=== PATIENT | male | born 2000 | race Caucasian/White ===

== ENCOUNTER 2023-02-18 17:16 | Emergency (ER) | payer OTHER, SELFPAY ==
[2023-02-18 17:26] VITALS: BP 121/76; PULSE 81; RESP 16; TEMP 36.7; O2SAT 98; BMI 22.2
--- NOTE | 2023-02-18 17:40 | CRLHL7_ITS ---
For Patients: As a result of the Cures Act, medical imaging exams and procedure reports are released immediately into your electronic medical record. You may view this report before your referring provider. If you have questions, please contact your health care provider. Indication: Injury. Technique: Three views of the left 2nd finger. Comparison: None available. Findings: Alignment is anatomic. Joint spaces are maintained. No acute fracture. Normal bone density. Soft tissues are unremarkable. Impression: No acute osseous abnormality. Dictated by Tina Urban MD @ 02/18/2023 6:52:36 PM (Electronically Signed)
--- NOTE | 2023-02-18 17:42 | ED.GENADULT ---
HPI - General Adult General Chief complaint: Extremity Pain/Injury, Upper Stated complaint: R finger injury Time Seen by Provider: 02/18/23 17:34 History of Present Illness HPI narrative: Patient is a 21 I year old white male diabetic who takes insulin who was working at a roller of metal and his glove got caught in the machine and squished his index finger over the nail and distal phalanx. He has some numbness in that area he is able to move it but it is tender. He has limited sensation secondary to being squished. It is slightly reddened. He has got a little bit of bruising and bleeding underneath the nail but it is not significant it is really just a small spider type hemorrhage. The patient denies any foreign body had a glove on as mention it was a sheet of metal. Related Data Home Medications Medication Instructions Recorded Confirmed insulin degludec 100 unit/mL (3 34 unit subcut DAILY PRN 02/18/23 02/18/23 mL) subcutaneous pen (Tresiba FlexTouch U-100 insulin) Previous Rx's Medication Instructions Recorded cephalexin 500 mg capsule 500 mg PO QID #20 caps 02/18/23 Allergies Allergy/AdvReac Type Severity Reaction Status Date / Time No Known Drug Allergies Allergy Verified 02/18/23 17:25 Review of Systems Status of ROS: Reports: 6 or more systems reviewed and unremarkable except as noted in History and below Exam Narrative: Exam Narrative: Objective vital signs are within normal limits He is alert orient x3 no distress Right index finger shows just a trace splinter hemorrhage under his nail no significant subungual hematoma, no open wounds he has got a blood blister on the tip of the finger. Range of motion limited secondary to swelling and discomfort. Const: Vital Signs, click to edit/add: Vital Signs - 24 hr 02/18/23 17:26 Temperature 98.1 F Pulse Rate [Pulse Oximeter] 81 Respiratory Rate 16 Blood Pressure [Ri ght Upper Arm] 121/76 Pulse Oximetry 98 Oxygen Delivery Me thod Room Air Course Vital Signs Vital signs: Initial Vital Signs Temperature 98.1 F 02/18/23 17:26 Temperature Source Temporal Artery Scan 02/18/23 17:26 Pulse Rate 81 02/18/23 17:26 Respiratory Rate 16 02/18/23 17:26 Blood Pressure 121/76 02/18/23 17:26 Blood Pressure Mean 91 02/18/23 17:26 Blood Pressure Position Sitting 02/18/23 17:26 Pulse Oximetry 98 02/18/23 17:26 Oxygen Delivery Method Room Air 02/18/23 17:26 Vital Signs Temperature 98.1 F 02/18/23 17:26 Pulse Rate 81 02/18/23 17:26 Respiratory Rate 16 02/18/23 17:26 Blood Pressure 121/76 02/18/23 17:26 Pulse Oximetry 98 02/18/23 17:26 Oxygen Delivery Method Room Air 02/18/23 17:26 Temperature 98.1 F 02/18/23 17:26 Pulse Rate 81 02/18/23 17:26 Respiratory Rate 16 02/18/23 17:26 Blood Pressure 121/76 02/18/23 17:26 Pulse Oximetry 98 02/18/23 17:26 Oxygen Delivery Method Room Air 02/18/23 17:26 Medical Decision Making MDM Narrative Medical decision making narrative: [age] white male diabetic with a crush injury to the index finger on the left with a history of diabetes. Will cover the patient with antibiotics he will need Keflex 500 q.i.d. x5 days, will check an x-ray to make sure there is no fracture. Will soak the area copiously in sterile solution. And cover it. Depending on his x-ray may need follow-up in a few days light activity. Addendum 5:56 p.m. there is no apparent fracture by my read on his x-ray. Will cover with Keflex 500 q.i.d. x5 days, Tylenol or Advil as needed, light duty for the next few days. Return as needed. Follow up with primary care in the next 4-5 days for reassessment thanks Discharge Plan Discharge Clinical Impression: Finger injury Patient Disposition: Home, Self-Care Condition: Stable Additional Instructions: Tylenol and Advil as needed, elevation, keep this dressing on until tomorrow then may soak off and cover with a bandage as needed. Recommend light activity with the hand for 3 days or so and then follow up Thursday with primary care. Activity Level: Light activity Discharge Diet: Regular Prescriptions: New cephalexin 500 mg capsule 500 mg PO QID Qty: 20 0RF No Action insulin degludec [Tresiba FlexTouch U-100] 100 unit/mL (3 mL) insulin pen 34 unit subcut DAILY PRN Stand Alone Forms: [facility] Info Instructions
--- NOTE | 2023-02-18 17:44 | ED.NURSE ---
finger/hand soaking
[2023-02-18] MEDS: TETANUS/DIPHTH/PERTUSSIS 0.5 ML SYRINGE IM (18:10)
--- NOTE | 2023-02-18 18:23 | ED.NURSE ---
dressing to the finger is done and boss is wondering about a drug screen. Asked some questions about that and boss did not know what needed, who [facility] is, company to send information to
--- NOTE | 2023-02-18 19:37 | ED.NURSE ---
[employer]el[employer] decided to leave and not do the drug screen.
== END 2023-02-18 19:45 | disposition home or self-care (01) ==
PROVIDERS: Emergency Provider Family Medicine
DX: S67.190A Crushing injury of right index finger, initial encounter (principal); W31.89XA Contact with other specified machinery, initial encounter
CPT/HCPCS: 73140; 90471; 90715; 99283; 99284